=== PATIENT | male | born 1990 | race Two or more races ===

== ENCOUNTER 2024-09-10 10:29 | Outpatient (CLI) | payer OTHER, SELFPAY ==
--- NOTE | ~2024-09-10 | XR_ITS ---
Right Shoulder Technique: AP and axillary views were obtained. Clinical History: Pain Findings: No fracture or dislocation is seen. Osseous alignment is anatomic. The glenohumeral and acr omioclavicular joint spaces are preserved. Soft tissues are unremarkable. Impression: Unremarkable right shoulder radiographs. Reviewed, dictated and finalized at [facility]. Impression: Unremarkable right shoulder radiographs.
--- NOTE | ~2024-09-10 | XR_ITS ---
Cervical Spine: AP, lateral, open-mouth views Clinical History: Pain Findings: The normal lordotic curve is maintained. The vertebral bodies and posterior elements appea r intact. The intervertebral disc spaces are well maintained. Pre-vertebral soft tissues are unremar kable. Impression: No significant abnormality is seen. Reviewed, dictated and finalized at [facility]. Impression: No significant abnormality is seen.
--- OUTSIDE RECORDS SUMMARY | 2024-09-10 11:23 | XMS_ITS | Continuity of Care Document ---
Author Organization [place] - [facility], [facility] Address [address] [place] [address] Care Team Providers Care Program Director/Music Director Name Role Phone ADALID HERNANDEZ Primary Care Provider [phone] Assessment No assessment recorded. Plan of Treatment Reminders Order Date Submit Date Provider Last Modified By Organization Details Last Modified Time Details Appointments Follow Up 15 2024 08:30A M Adalid Hernandez MD Not available Not available Not available Lab None recorded. Referral None recorded. Procedures None recorded. Surgeries None recorded. Imaging XR, cervical spine, 2 or 3 view 2024 025 [facility], [address] [place] [address], [id number], 09/09/2024 11:50:45 XR, shoulder, 2 or more view [email or web address] [place] [address], [address] [place] [address], [id number], 09/09/2024 11:50:45 Medication Orders cyclobenz aprine 10 mg tablet 2024 025 [facility] [place], [address], 09/09/2024 11:44:10 ergocalci ferol (vitamin D2) 1,250 mcg (50,000 unit) capsule 2024 025 [facility] [place], [address], 09/09/2024 11:44:09 omeprazol e 20 mg capsule,d elayed release 2024 025 [facility] [place], [address], 09/09/2024 11:44:11 tramadol 50 mg tablet 2024 025 [facility] [place], [address], 09/09/2024 11:44:21 Patient TargetsNo targets recorded. Patient InstructionsNo instructions recorded. Reason for Referral None Reported. Problems Name Problem SNOMED Code Status Onset Date Resolution Date Notes Provider Name and Address Organization Details Recorded Time Shivam pittman 974529929 Active 2020 Not Available [facility] 3 22:22:48 Gastroesop hageal reflux disease without esophagiti s 148123845 Active 2020 Not Available [facility] 3 22:22:49 Anemia 587815764 Active 2020 Not Available [facility] 3 22:22:49 Vitamin D deficiency 10895643 Active 2020 Not Available [facility] 3 22:22:49 Pain of left knee joint 4654857945497 07 Active 2021 Not Available [facility] 3 22:22:49 Vitamin B12 deficiency (non anemic) 73976945 Active 2020 Not Available [facility] 3 22:22:49 Dental caries 96389056 Active 2020 Not Available [facility] 3 22:22:49 Fatigue 91919448 Active 2020 Not Available [facility] 3 22:22:49 Pain of right shoulder joint 1044653148788 9100 Active 2024 Adalid Hernandez MD [address] [place] [address], [phone] , [facility] 5 11:39:13 Chronic neck pain 2380519380369 Active 2024 Adalid Hernandez MD [address], [place], [address] , [place] [facility] 5 11:40:28 Problem Notes None recorded. Medical Equipment None Reported. Allergies No known drug allergies Medications Name Sig Start Date Stop Date Status Note LastModified by Organization Details LastModified Time cyclobenz aprine 10 mg tablet Take 1 tablet every 12 hours by oral route as needed for 15 days. 2024 active Not Available Not Available Not Avai lable amoxicill in 500 mg capsule TAKE ONE CAPSULE BY MOUTH EVERY 8 HOURS UNTIL ALL TAKEN 01/18 completed Not Available Not Available Not Available promethaz ine-DM 6.25 mg-15 mg/5 mL oral syrup TK 5 ML PO Q 4 TO 6 H PRF COUGH OR NAUSEA 06/20 completed Not Available Not Available Not Available ibuprofen 800 mg tablet TAKE 1 TABLET BY MOUTH EVERY 8 HOURS UNTIL ALL TAKEN 01/18 completed Not Available Not Available Not Available prednison e 20 mg tablet TK 1 T PO D IN THE MORNING WF OR MILK 06/20 completed Not Available Not Available Not Available cyanocoba nathan (vit B-12) 1,000 mcg tablet Take 1 tablet every day by oral route as directed . active Not Available Not Available No t Available penicilli n V potassium 500 mg tablet Take 1 tablet twice a day by oral route for 10 days. active Not Available Not Available No t Available acetamino phen 300 mg-codein e 30 mg tablet TAKE 1 TO 2 TABLETS BY MOUTH EVERY 6 HOURS NEEDED 01/18 completed Not Available Not Available Not Available tramadol 50 mg tablet Take 1 tablet every 8 hours by oral route as needed for 7 days. 2024 active Not Available Not Available Not Avai lable famotidin e 20 mg tablet TAKE 1 TABLET BY MOUTH TWICE DAILY DIRECTED 09/09 completed Not Available Not Available Not Available cyanocoba nathan (vit B-12) 1,000 mcg/mL injection solution Inject 1 mL every week by subcutan eous route for 1 day. active Pt tolerate d well Not Available Not Available Not Available omeprazol e 20 mg capsule,d elayed release Take 1 capsule every day by oral route in the morning for 30 days. 2024 active Not Available Not Available Not Avai lable ergocalci ferol (vitamin D2) 1,250 mcg (50,000 unit) capsule Take 1 capsule every week by oral route as directed for 90 days. 2024 active Not Available Not Available Not Avai lable ferrous sulfate 325 mg (65 mg iron) tablet,de layed release Take 1 tablet twice a day by oral route with meals for 30 days. active Not Available Not Available No t Available FeroSul 325 mg (65 mg iron) tablet TAKE 1 TABLET BY MOUTH TWICE DAILY WITH MEALS active Not Available Not Available No t Available One Daily Multivita min with Iron 18 mg iron tablet Take 1 tablet every day by oral route as directed for 30 days. active Not Available Not Available No t Available Flublok Quad 0364-3470 (PF) 180 mcg (45 mcg x 4)/0.5 mL IM syringe PHARMACI ST ADMINIST ERED IMMUNIZA TION ADMINIST ERED AT TIME OF DISPENSI NG active Not Available Not Available No t Available Tab-A-Vit e 400 mcg tablet TAKE 1 TABLET BY MOUTH ONCE DAILY DIRECTED 09/09 completed Not Available Not Available Not Available Vitals Date Recorded Body height Body mass index (BMI) Body weight Body temperature Oxygen saturation Oxygen saturation in Arterial blood by Pulse oximetry Heart rate Systolic blood pressure Diastolic blood pressure Provider Name and Address Organization Details Last Updated DateTime 5 162.56 cm 18.1 kg/m2 97175.2 5 g 98.2 [degF] 98 % 98 % 86 /min 110 mm[Hg] 70 mm[Hg] Columba Ramos RN [place] [facility] 5 11:31:41 Social History Question Answer Notes LastModified by Organizat ion Details LastModified Time Tobacco Smoking Status Never Smoker Not Available [facility] 08/01/2022 22:22:06 In The 14 Days Before Symptom Onset, Have You Had Close Contact With A Laboratory-confirm ed COVID-19 While That Case Was Ill? No [id number] Information not available 08/01/2022 In The 14 Days Before Symptom Onset, Have You Had Close Contact With A Person Who Is Under Investigation For COVID-19 While That Person Was Ill? No [id number] Information not available 08/01/2022 Sex: Unknown Functional Status None recorded. Mental Status None recorded. Family History Nothing Reported. Medical History No medical history recorded. Immunizations Vaccine Type Date Status Note Provider Nam e and Address Organization Details Recorded Time Influenza, split virus, quadrivalent, PF 05/15/2021 completed Not Available [facility] 22:23:34 Past Encounters Encounter ID Performer Location Encounter Start Date Encounter Closed Date Diagnosis/Indication Diagnosis SNOMED-CT Code Diagnosis ICD10 Code Diagnosis Note [id number] Adalid Hernandez MD [facility] [address] [place] [id number] 09/09/2024 11:21:09 09/09/2024 11:50:45 Pain of right shoulder joint 7543663757 5652416 M25.511 Anemia 511527187 D64.9 Chronic neck pain 239950 8935 107 M54.2 Vitamin D deficiency 347 60512 E55.9 Gastroesop hageal reflux disease without esophagitis 215418349 K21.9 Vitamin B1 2 deficiency (non anemic) 02640421 E53.8 Health Concerns Section Related Observation LastModified by Organization Detai ls LastModified Time None Recorded Concern Status LastModified by Organization Details LastModified Time None Recorded Payers Encounter Date Sequence Insurance Name Policy Number Policy Troy Covered Member ID Troy Member ID Guarantor Name 09/09/2024 1 [facility] [id number] [facility] [id number] [facility] Notes Date Note Type Note Provider Name and Address Organization Details Recorded Time 09/09/2024 text/html ACV: C/o Rt shoulder pain for last 2-3 weeks. Pt denies any recent fall/injury. Pt denies any workman's comp. 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 Pt had a fall about 1 yr ago and had Rt shoulder pain at that time. Pt denies any testing at that time and did not see anyone for it. Pt also had a fall in [place] about 10 yrs ago and had some back injury at that time and he was admitted to hospital in [place] for few days and it all got better. Pt denies any fracture at that time. Adalid Hernandez MD [address] [place] [address], [facility] [address], [place], [address], [facility] 09/09/2024 11:49:45
--- OUTSIDE RECORDS SUMMARY | 2024-09-10 11:23 | XMS_ITS | Clinical Summary ---
Author Organization [facility] Address [address] [place] [address] Phone Care Team Providers Care Inspector And Unloader Name Role Phone Provider, None Primary Care Provider Unavailabl e Allergies No known active allergies Medications polyethylene glycol (GLYCOLAX) Powder Take 17 g by mouth daily. 17 g = 1 scoop. Dissolve in 4 -8 oz of water or other liquid. Active ketorolac (TORADOL) 10 MG Tablet Take 1 Tab by mouth every 6 hours as needed for Moderate or more severe pain. 20 Tab 06/23/2018 Active polyethylene glycol (MIRALAX) Pack Take 1 Packet by mouth daily. Dissolve in 4-8 oz of liquid. 30 Packet 06/23/2018 Active docusate sodium (COLACE) 100 MG Capsule Take 1 Cap by mouth 2 times daily. 10 Cap 06/23/2018 Active Social History Tobacco Use Types Packs/Day Years Used Date Smoking Tobacco: Never Smokeless Tobacco: Never Alcohol Use Standard Drinks/Week Comments No 0 (1 standard drink = 0.6 oz pur e alcohol) Sex and Gender Information Value Date Recorded Sex Assigned at Not on file Legal Sex Male 10:05 AM SEAM STAYER Gender Identity Not on file Sexual Orientation Not on file Last Filed Vital Signs Vital Sign Reading Time Taken Comments Blood Pressure 124/77 06/23/2018 10:13 AM SEAM STAYER Pulse 73 06/23/2018 10:13 AM SEAM STAYER Temperature 37.2 C (99 F) 06/23/2018 10:13 AM SEAM STAYER Respiratory Rate 16 06/23/2018 10:13 AM SEAM STAYER Oxygen Saturation 100% 06/23/2018 10:13 AM SEAM STAYER Inhaled Oxygen Concentration - - Weight 59 kg (130 lb) 06/23/2018 10:13 AM SEAM STAYER Height 162.6 cm (5' 4 ) 06/23/2018 10:39 AM SEAM STAYER Body Mass Index 22.31 06/23/2018 10:13 AM SEAM STAYER Plan of Treatment Health Maintenance Due Date Last Done Comments Hepatitis C Virus (HCV) Screening 1988 TdaP Immunization 1988 Hepatitis B Immunization (1 of 3 - 19+ 3-dose series) 2007 Influenza Immunization (#1) 2024 SARS-COV-2 Immunization ( season) 2024 04/29/2021, 10/08/2020, 09/10/2020 Respiratory Syncytial Virus (RSV) Immunization (Adult) (1 - 1-dose 75+ series) 2063 Meningococcal Immunization (ACWY) Aged Out No longer eligible b ased on patient's age to complete this topic Pneumococcal Immunization Combined Aged Out No longer eligible b ased on patient's age to complete this topic Rotavirus Immunization Aged Out No lo nger eligible based on patient's age to complete this topic Insurance [place] [address] Care Teams Inspector And Unloader Relationship Specialty Start Date End Date Provider, None [place] PCP - General 06/23/18
--- OUTSIDE RECORDS SUMMARY | 2024-09-10 11:24 | XMS_ITS | Data Portability ---
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 Annual labs: 08/16/20. D/w pt in detail about his findings, recent labs & imagines and further plan of care. Will do routine labs. Meds as directed. Diet and exercise explained in detail. F/u with GI as per schedule. HM: Flu - 05/15/21. Tdap, Gardasil - At pharmacy/HD. F/u in 2 weeks. Annual labs in 01/24. Not available 01/03/2023 09:22:47 Plan of Treatment Reminders Order Date Submit Date Provider Last Modified By Organization Details Last Modified Time Details Appointments Follow Up 15 2024 08:30A M Adalid Hernandez MD Not available Not available Not available Lab CMP, serum or plasma 2022 023 [facility] (Lab), [address] [place], [address], 01/03/2023 14:58:01 CBC w/ auto diff 2022 023 [facility] (Lab), [address] [place], [address], 01/03/2023 14:41:32 lipid panel, blood 2022 023 [email or web address] [facility] (Lab), [address] [place], [address], 01/16/2023 16:27:26 TSH, serum, reflex free T4 2022 023 [facility] (Lab), [address] [place], [address], 01/03/2023 16:00:57 urinalysi s complete, reflex culture [address] (Lab), [address] [place], [address], 01/16/2023 16:27:27 iron + total iron-bind ing capacity (TIBC), serum 2022 023 [facility] (Lab), [address] [place], [address], 01/03/2023 14:56:11 magnesium , serum or plasma 2022 023 [facility] (Lab), [address] [place], [address], 01/03/2023 14:57:50 vitamin B12 + folate, serum or blood [address] (Lab), [address] [place], [address], 01/16/2023 16:27:27 vitamin D, 25-hydrox y, total, serum [address] (Lab), [address] [place], [address], 01/16/2023 16:27:27 H pylori Ag, qual immunoass ay, stool 2022 023 [facility] ([facility]), [address] [place], [address], 01/16/2023 16:27:27 Referral None recorded. Procedures None recorded. Surgeries None recorded. Imaging XR, cervical spine, 2 or 3 view [email or web address] [place] [address], [address] [place] [address], [id number], 09/09/2024 11:50:45 XR, shoulder, 2 or more view [email or web address] [place] [address], [address] [place] [address], [id number], 09/09/2024 11:50:45 Medication Orders cyclobenz aprine 10 mg tablet 2024 025 [facility], [address] [place] [address], [id number], 09/09/2024 11:44:10 ergocalci ferol (vitamin D2) 1,250 mcg (50,000 unit) capsule 2024 025 [facility], [address] [place] [address], [id number], 09/09/2024 11:44:09 omeprazol e 20 mg capsule,d elayed release 2024 025 [facility], [address] [place] [address], [id number], 09/09/2024 11:44:11 tramadol 50 mg tablet 2024 025 [facility], [address] [place] [address], [id number], 09/09/2024 11:44:21 Patient TargetsNo targets recorded. Patient InstructionsNo instructions recorded. Reason for Referral None Reported. Results Created Date Observation Date Name Description Value Unit Range Abnormal Flag Note LastModifiedBy Organization Detail LastModifiedTime 01/04/2001/0301/03/2023 URINA LYSIS COMPL ETE/I RIS W/RFX color COLORL ESS Not Available [facility] (Lab) [address] [place], [address], 01/03/2023 13:38:41 01/04/20 23 01/03/2023 URINA LYSIS COMPL ETE/I RIS W/RFX appear CLEAR Not Available [facility] (Lab) [address] [place], [address], 01/03/2023 13:38:41 01/04/20 23 01/03/2023 URINA LYSIS COMPL ETE/I RIS W/RFX specific gravity 1.006 1.001- 1.030 Not Available [facility] (Lab) [address] [place], [address], 01/03/2023 13:38:41 01/04/20 23 01/03/2023 URINA LYSIS COMPL ETE/I RIS W/RFX pH 6.0 pH_un its 5.0-9. 0 Not Available [facility] (Lab) [address] [place], [address], 01/03/2023 13:38:41 01/04/20 23 01/03/2023 URINA LYSIS COMPL ETE/I RIS W/RFX leukocytes NEGATI VE marva/u L negati ve- Not Available [facility] (Lab) [address] [place], [address], 01/03/2023 13:38:41 01/04/20 23 01/03/2023 URINA LYSIS COMPL ETE/I RIS W/RFX nitrite NEGATI VE negati ve- Not Available [facility] (Lab) [address] [place], [address], 01/03/2023 13:38:41 01/04/20 23 01/03/2023 URINA LYSIS COMPL ETE/I RIS W/RFX protein NEGATI VE mg/dL negati ve- Not Available [facility] (Lab) [address] [place], [address], 01/03/2023 13:38:41 01/04/20 23 01/03/2023 URINA LYSIS COMPL ETE/I RIS W/RFX glucose NORMAL mg/dL normal - Not Available [facility] (Lab) [address] [place], [address], 01/03/2023 13:38:41 01/04/20 23 01/03/2023 URINA LYSIS COMPL ETE/I RIS W/RFX ketones NEGATI VE mg/dL negati ve- Not Available [facility] (Lab) [address] [place], [address], 01/03/2023 13:38:41 01/04/20 23 01/03/2023 URINA LYSIS COMPL ETE/I RIS W/RFX urobilinogen NORMAL mg/dL normal - Not Available [facility] (Lab) [address] [place], [address], 01/03/2023 13:38:41 01/04/20 23 01/03/2023 URINA LYSIS COMPL ETE/I RIS W/RFX bilirubin NEGATI VE mg/dL negati ve- Not Available [facility] (Lab) [address] [place], [address], 01/03/2023 13:38:41 01/04/20 23 01/03/2023 URINA LYSIS COMPL ETE/I RIS W/RFX blood NEGATI VE mg/dL negati ve- Not Available [facility] (Lab) [address] [place], [address], 01/03/2023 13:38:41 01/04/20 23 01/03/2023 URINA LYSIS COMPL ETE/I RIS W/RFX white blood cells 0-8 /i??h pfi?? 0-8 Not Available [facility] (Lab) [address] [place], [address], 01/03/2023 13:38:41 01/04/2001/03/2023 URINA LYSIS COMPL ETE/I RIS W/RFX red blood cells 0-4 /i??h pfi?? 0-4 Not Available [facility] (Lab) [address] [facility] [place], [address], 01/03/2023 13:38:41 01/04/20 23 01/03/2023 URINA LYSIS COMPL ETE/I RIS W/RFX bacteria NONE Not Available [facility] (Lab) [address] [facility] [place], [address], 01/03/2023 13:38:41 01/04/20 23 01/03/2023 URINA LYSIS COMPL ETE/I RIS W/RFX mucous OCCASI ONAL /i??l pfi?? abnormal Not Available [facility] (Lab) [address] [place], [address], 01/03/2023 13:38:41 01/04/2001/03/2023 URINA LYSIS COMPL ETE/I RIS W/RFX squamous epithelial OCCASI ONAL /i??l pfi?? abnormal Not Available [facility] (Lab) [address] [place], [address], 01/03/2023 13:38:41 01/04/20 23 01/04/2023 CBC/C OMPLE TE BLD COUNT W/DIF F white blood cells 3.8 x10'3 /uL 4.2-10 .8 low Not Available [facility] (Lab) [address] [place], [address], 01/04/2023 10:39:49 01/04/20 23 01/04/2023 CBC/C OMPLE TE BLD COUNT W/DIF F red blood cells 6.16 x10'6 /uL 4.10-5 .80 high Not Available [facility] (Lab) [address] [place], [address], 01/04/2023 10:39:49 01/04/20 23 01/04/2023 CBC/C OMPLE TE BLD COUNT W/DIF F hemoglobin 9.0 g/dL 13.2-1 7.0 low Not Available [facility] (Lab) [address] [place], [address], 01/04/2023 10:39:49 01/04/20 23 01/04/2023 CBC/C OMPLE TE BLD COUNT W/DIF F hematocrit 33.4 % 39.3-5 0.0 low Not Available [facility] (Lab) [address] [place], [address], 01/04/2023 10:39:49 01/04/20 23 01/04/2023 CBC/C OMPLE TE BLD COUNT W/DIF F mean red cell volume 54.2 fL 80.0-9 7.0 low Not Available [facility] (Lab) [address] [place], [address], 01/04/2023 10:39:49 01/04/20 23 01/04/2023 CBC/C OMPLE TE BLD COUNT W/DIF F mean red cell hemoglobin 14.6 pg 27.0-3 3.0 low Not Available [facility] (Lab) [address] [place], [address], 01/04/2023 10:39:49 01/04/20 23 01/04/2023 CBC/C OMPLE TE BLD COUNT W/DIF F mean RBC HGB concentratio n 26.9 g/dL 31.0-3 6.0 low Not Available [facility] (Lab) [address] [place], [address], 01/04/2023 10:39:49 01/04/20 23 01/04/2023 CBC/C OMPLE TE BLD COUNT W/DIF F red cell distribution width 22.6 % 11.8-1 5.5 high Not Available [facility] (Lab) [address] [place], [address], 01/04/2023 10:39:49 01/04/20 23 01/04/2023 CBC/C OMPLE TE BLD COUNT W/DIF F platelets 369 x10'3 /uL 150-40 0 Not Available [facility] (Lab) [address] [place], [address], 01/04/2023 10:39:49 01/04/20 23 01/04/2023 CBC/C OMPLE TE BLD COUNT W/DIF F neutrophils 49.7 % 39.0-7 2.0 Not Available [facility] (Lab) [address] [place], [address], 01/04/2023 10:39:49 01/04/20 23 01/04/2023 CBC/C OMPLE TE BLD COUNT W/DIF F lymphocytes 36.5 % 16.0-4 7.0 Not Available [facility] (Lab) [address] [place], [address], 01/04/2023 10:39:49 01/04/20 23 01/04/2023 CBC/C OMPLE TE BLD COUNT W/DIF F monocytes 8.3 % 5.0-12 .0 Not Available [facility] (Lab) [address] [place], [address], 01/04/2023 10:39:49 01/04/20 23 01/04/2023 CBC/C OMPLE TE BLD COUNT W/DIF F eosinophils 4.2 % 1.0-7. 0 Not Available [facility] (Lab) [address] [place], [address], 01/04/2023 10:39:49 01/04/20 23 01/04/2023 CBC/C OMPLE TE BLD COUNT W/DIF F basophils 1.3 % 0.0-2. 0 Not Available [facility] (Lab) [address] [place], [address], 01/04/2023 10:39:49 01/04/20 23 01/04/2023 CBC/C OMPLE TE BLD COUNT W/DIF F immature granulocytes 0.0 % 0.00-0 .50 Not Available [facility] (Lab) [address] [place], [address], 01/04/2023 10:39:49 01/04/2001/04/2023 CBC/C OMPLE TE BLD COUNT W/DIF F neutrophils, absolute count 1.91 x10'3 /uL 1.5-8. 0 Not Available [facility] (Lab) [address] [place], [address], 01/04/2023 10:39:49 01/04/20 23 01/04/2023 CBC/C OMPLE TE BLD COUNT W/DIF F lymphocytes, absolute count 1.40 x10'3 /uL 1.07-3 .43 Not Available [facility] (Lab) [address] [place], [address], 01/04/2023 10:39:49 01/04/2001/04/2023 CBC/C OMPLE TE BLD COUNT W/DIF F monocytes, absolute count 0.32 x10'3 /uL 0.29-0 .99 Not Available [facility] (Lab) [address] [place], [address], 01/04/2023 10:39:49 01/04/2001/04/2023 CBC/C OMPLE TE BLD COUNT W/DIF F eosinophils, absolute count 0.16 x10'3 /uL 0.02-0 .53 Not Available [facility] (Lab) [address] [place], [address], 01/04/2023 10:39:49 01/04/20 23 01/04/2023 CBC/C OMPLE TE BLD COUNT W/DIF F basophils, absolute count 0.05 x10'3 /uL 0.01-0 .08 Not Available [facility] (Lab) [address] [place], [address], 01/04/2023 10:39:49 01/04/20 23 01/04/2023 CBC/C OMPLE TE BLD COUNT W/DIF F immature granulocytes ,absolute 0.00 x10'3 /uL 0.00-0 .05 Not Available [facility] (Lab) [address] [place], [address], 01/04/2023 10:39:49 01/04/20 23 01/04/2023 CBC/C OMPLE TE BLD COUNT W/DIF F nucleated red blood cells 0.0 % -0 Not Available [facility] (Lab) [address] [place], [address], 01/04/2023 10:39:49 01/04/20 23 01/04/2023 CBC/C OMPLE TE BLD COUNT W/DIF F NRBC# 0.00 x10'3 /uL Not Available [facility] (Lab) [address] [place], [address], 01/04/2023 10:39:49 01/04/20 23 01/04/2023 CBC/C OMPLE TE BLD COUNT W/DIF F anisocytosis OCCASI ONAL Not Available [facility] (Lab) [address] [place], [address], 01/04/2023 10:39:49 01/04/20 23 01/04/2023 CBC/C OMPLE TE BLD COUNT W/DIF F poikilocytos is OCCASI ONAL Not Available [facility] (Lab) [address] [place], [address], 01/04/2023 10:39:49 01/04/20 23 01/04/2023 CBC/C OMPLE TE BLD COUNT W/DIF F hypochromia OCCASI ONAL Not Available [facility] (Lab) [address] [place], [address], 01/04/2023 10:39:49 01/04/20 23 01/04/2023 CBC/C OMPLE TE BLD COUNT W/DIF F target cells OCCASI ONAL Not Available [facility] (Lab) [address] [place], [address], 01/04/2023 10:39:49 01/04/20 23 01/04/2023 CBC/C OMPLE TE BLD COUNT W/DIF F ovalocytes OCCASI ONAL Not Available [facility] (Lab) [address] [place], [address], 01/04/2023 10:39:49 01/04/20 23 01/04/2023 CBC/C OMPLE TE BLD COUNT W/DIF F schistocytes OCCASI ONAL Not Available [facility] (Lab) [address] [place], [address], 01/04/2023 10:39:49 01/04/20 23 01/04/2023 CBC/C OMPLE TE BLD COUNT W/DIF F large platelets OCCASI ONAL Not Available [facility] (Lab) [address] [place], [address], 01/04/2023 10:39:49 01/04/20 23 01/03/2023 IRON/ TIBC PANEL total iron binding capacity 482 mcg/d L 265-47 5 high Not Available [facility] (Lab) [address] [place], [address], 01/03/2023 14:59:14 01/04/20 23 01/03/2023 IRON/ TIBC PANEL % transferrin saturation 5 % 20-55 low Not Available [facility] (Lab) [address] [place], [address], 01/03/2023 14:59:14 01/04/2001/03/2023 IRON/ TIBC PANEL unsaturated iron bind capacity 458 mcg/d L 126-38 2 high Not Available [facility] (Lab) [address] [place], [address], 01/03/2023 14:59:14 01/04/20 23 01/03/2023 IRON/ TIBC PANEL iron 24 mcg/d L 42-175 low Not Available [facility] (Lab) [address] [place], [address], 01/03/2023 14:59:14 01/04/20 23 01/03/2023 LIPID PANEL cholesterol 151 mg/dL 140-19 9 NIH CHIOMA NSUS RECOM MENDA TION FOR VANI STERO L: ADULT CHILD LOW RISK: <200 <170 BORDE RLINE : <200- 239 ----- HIGH RISK: >240 >200 Not Available [facility] (Lab) [address] [place], [address], 01/03/2023 14:57:48 01/04/2001/03/2023 LIPID PANEL triglyceride s 74 mg/dL 0-150 NIH CHIOMA NSUS REPOR T RECOM MENDA TION FOR TRIGL YCERI ALEXANDER: ADULT CHILD LOW RISK: <150 ----- BODER LINE: 150-1 99 ----- HIGH RISK: >200 ----- Not Available [facility] (Lab) [address] [place], [address], 01/03/2023 14:57:48 01/04/2001/03/2023 LIPID PANEL HDL cholesterol 45 mg/dL 40- Not Available [facility] (Lab) [address] [place], [address], 01/03/2023 14:57:48 01/04/2001/03/2023 LIPID PANEL LDL cholesterol, calculated 91 mg/dL 0-130 NIH CHIOMA NSUS REPOR T RECOM MENDA TIONS FOR LDL: ADULT CHILD LOW RISK <130 <110 (OPTI MAL LDL) <100 ----- BORDE RLINE : 130-1 59 ----- HIGH RISK: >160 >130 A TRIGL YCERI DE RESUL T >400 INVAL IDATE S THE CALCU LATIO N FOR LDL FRACT IONAT ION - THE LDL RESUL T WILL NOT BE REPOR MEAGHAN. Not Available [facility] (Lab) [address] [place], [address], 01/03/2023 14:57:48 01/04/2001/03/2023 MAGNE SIUM magnesium 2.1 mg/dL 1.6-2. 3 Not Available [facility] (Lab) [address] [place], [address], 01/03/2023 14:57:50 01/04/20 23 01/03/2023 COMPR EHENS DANI METAB OLIC PANEL sodium 137 mmol/ L 137-14 5 Not Available [facility] (Lab) [address] [place], [address], 01/03/2023 14:58:01 01/04/20 23 01/03/2023 COMPR EHENS DANI METAB OLIC PANEL potassium 4.6 mmol/ L 3.5-5. 1 Not Available [facility] (Lab) [address] [place], [address], 01/03/2023 14:58:01 01/04/20 23 01/03/2023 COMPR EHENS DANI METAB OLIC PANEL chloride 104 mmol/ L 98-107 Not Available [facility] (Lab) [address] [place], [address], 01/03/2023 14:58:01 01/04/20 23 01/03/2023 COMPR EHENS DANI METAB OLIC PANEL carbon dioxide 26 mmol/ L 22-30 Not Available [facility] (Lab) [address] [place], [address], 01/03/2023 14:58:01 01/04/20 23 01/03/2023 COMPR EHENS DANI METAB OLIC PANEL anion gap 11.6 mmol/ L 14-22 low Not Available [facility] (Lab) [address] [place], [address], 01/03/2023 14:58:01 01/04/20 23 01/03/2023 COMPR EHENS DANI METAB OLIC PANEL glucose 90 mg/dL 70-99 Not Available [facility] (Lab) [address] [place], [address], 01/03/2023 14:58:01 01/04/20 23 01/03/2023 COMPR EHENS DANI METAB OLIC PANEL BUN 8 mg/dL 8-19 Not Available [facility] (Lab) [address] [place], [address], 01/03/2023 14:58:01 01/04/20 23 01/03/2023 COMPR EHENS DANI METAB OLIC PANEL creatinine 0.71 mg/dL 0.66-1 .25 Not Available [facility] (Lab) [address] [place], [address], 01/03/2023 14:58:01 01/04/20 23 01/03/2023 COMPR EHENS DANI METAB OLIC PANEL GFR >60 Refer ence Range : Winn ge GFR Healt hy Adult : >60 mL/mi n/1.7 3 m2 Chron ic Kidne y Disea se: 15-60 mL/mi n/1.7 3 m2 Kidne y Failu re: <15/m L/min /1.73 m2 www.n iddk. nih.g ov The MDRD study equat ion has not been valid ated in child rose <18 years of age; pregn ant women ; the elder ly >85 years of age; or in some racia l or ethni c subgr oups, such as Hispa nics. Outsi de the valid ated paul eters , estim ated GFR is less accur ate, requi ring clini katlyn judgm ent on a case- by-ca se basis . Clini katlyn inter preta tion for other races and ages must be made by the clini mao. The MDRD study equat ion has not been valid ated for the evalu ation of serum creat inine relat ed to nutri lencho l statu s or medic ation usage . For perso ns <18 years of age, a pedia tric GFR calcu lator is avail able on the [facility] websi te: https ://ww w.kid tuan.o rg/pr ofess ional s/kdo qi/gf r_cal culat or Not Available [facility] (Lab) [address] [place], [address], 01/03/2023 14:58:01 01/04/20 23 01/03/2023 COMPR EHENS DANI METAB OLIC PANEL alkaline phosphatase 45 U/L 38-126 Not Available [facility] (Lab) [address] [place], [address], 01/03/2023 14:58:01 01/04/20 23 01/03/2023 COMPR EHENS DANI METAB OLIC PANEL alanine aminotransfe rase 20 U/L 0-50 Not Available [facility] (Lab) [address] [place], [address], 01/03/2023 14:58:01 01/04/20 23 01/03/2023 COMPR EHENS DANI METAB OLIC PANEL aspartate aminotransfe rase 26 U/L 15-46 Not Available [facility] (Lab) [address] [place], [address], 01/03/2023 14:58:01 01/04/20 23 01/03/2023 COMPR EHENS DANI METAB OLIC PANEL bilirubin, total 0.50 mg/dL 0.20-1 .30 Not Available [facility] (Lab) [address] [place], [address], 01/03/2023 14:58:01 01/04/20 23 01/03/2023 COMPR EHENS DANI METAB OLIC PANEL calcium 9.4 mg/dL 8.4-10 .2 Not Available [facility] (Lab) [address] [place], [address], 01/03/2023 14:58:01 01/04/20 23 01/03/2023 COMPR EHENS DANI METAB OLIC PANEL total protein 7.5 g/dL 6.3-8. 2 Not Available [facility] (Lab) [address] [facility] [place], [address], 01/03/2023 14:58:01 01/04/20 23 01/03/2023 COMPR EHENS DANI METAB OLIC PANEL albumin 4.7 g/dL 3.4-5. 0 Not Available [facility] (Lab) [address] [place], [address], 01/03/2023 14:58:01 01/04/20 23 01/03/2023 COMPR EHENS DANI METAB OLIC PANEL globulin 2.8 g/dL 2.6-4. 2 Not Available [facility] (Lab) [address] [place], [address], 01/03/2023 14:58:01 01/04/20 23 01/03/2023 COMPR EHENS DANI METAB OLIC PANEL A/G ratio 1.7 ratio 1.0-2. 0 Not Available [facility] (Lab) [address] [place], [address], 01/03/2023 14:58:01 01/04/2001/03/2023 TSH W/REF SHASTA FT4 TSH with reflex free T4 8.060 uIU/m L 0.465- 4.680 high Not Available [facility] (Lab) [address] [place], [address], 01/03/2023 15:25:51 01/04/20 23 01/03/2023 T4 FREE free T4 1.11 NG/dL 0.78-2 .19 Not Available [facility] (Lab) [address] [place], [address], 01/03/2023 15:56:47 01/04/20 23 01/03/2023 VITAM IN D 25-HY DROXY vd25oh 22.4 NG/mL 30-100 low Vitam in D Statu s: Defic ient: <20 ng/mL Insuf ficie nt: 20-29 ng/mL Suffi cient : 30-10 0 ng/mL Not Available [facility] (Lab) [address] [place], [address], 01/03/2023 18:44:01 01/04/20 23 01/03/2023 VITAM IN B12 (ROBERT JOZEF ) vb12 185 pg/mL 239-93 1 low Not Available [facility] (Lab) [address] [place], [address], 01/03/2023 19:36:47 01/04/2001/03/2023 FOLAT E, SERUM /PLAS MA folate 7.00 NG/mL 2.76-2 0.0 Not Available [facility] (Lab) [address] [place], [address], 01/03/2023 19:36:52 Result Notes None recorded. Problems Name Problem SNOMED Code Status Onset Date Resolution Date Notes Provider Name and Address Organization Details Recorded Time [facility] t 998514683 Active 2020 Not Available [facility] 3 22:22:48 Gastroesop hageal reflux disease without esophagiti s 337903649 Active 2020 Not Available [facility] 3 22:22:49 Anemia 578020288 Active 2020 Not Available [facility] 3 22:22:49 Vitamin D deficiency 50773602 Active 2020 Not Available [facility] 3 22:22:49 Pain of left knee joint 4925389525715 07 Active 2021 Not Available [facility] 3 22:22:49 Vitamin B12 deficiency (non anemic) 15280411 Active 2020 Not Available [facility] 3 22:22:49 Dental caries 66046254 Active 2020 Not Available [facility] 3 22:22:49 Fatigue 51661337 Active 2020 Not Available [facility] 3 22:22:49 Pain of right shoulder joint 2269717667717 9100 Active 2024 Adalid Hernandez MD [address] [place] [address], [place], [address] , [facility] 5 11:39:13 Chronic neck pain 8161670002083 Active 2024 Adalid Hernadnez MD [address] [place] [address], [place], [address] , [facility] 5 11:40:28 Problem Notes None recorded. Medical [...] Not Available Not Available Not Available cyanocoba jozef (vit B-12) 1,000 mcg tablet Take 1 [...] Not Available Not Available Not Available cyanocoba jozef (vit B-12) 1,000 mcg/mL injection solution Inject [...] Not Available No t Available Flublok Quad (PF) 180 mcg (45 mcg x 4)/0.5 mL IM syringe PHARMACI ST ADMINIST ERED IMMUNIZA TION ADMINIST ERED AT TIME OF DISPENSI NG active Not Available Not Available No t Available Tab-A-Vit e 400 mcg tablet TAKE 1 TABLET BY MOUTH ONCE DAILY DIRECTED 09/09 completed Not Available Not Available Not Available Vitals Date Recorded Body mass index (BMI) Body height Oxygen saturation Oxygen saturation in Arterial blood by Pulse oximetry Heart rate Respiratory rate Body temperature Body weight Systolic blood pressure Diastolic blood pressure Provider Name and Address Organization Details Last Updated DateTime 2 17.6 kg/m2 162.56 cm 98 % 98 % 89 /min 16 /min 98.2 [degF] 10715.5 2 g 100 mm[Hg] 80 mm[Hg] Not Available [facility] 3 22:22:25 Date Recorded Body mass index (BMI) Body height Oxygen saturation Oxygen saturation in Arterial blood by Pulse oximetry Heart rate Respiratory rate Body temperature Body weight Systolic blood pressure Diastolic blood pressure Provider Name and Address Organization Details Last Updated DateTime 2 17.4 kg/m2 162.56 cm 98 % 98 % 79 /min 16 /min 98.6 [degF] 91107.9 3 g 100 mm[Hg] 62 mm[Hg] Not Available [facility] 3 22:22:25 Date Recorded Body mass index (BMI) Body height Oxygen saturation Oxygen saturation in Arterial blood by Pulse oximetry Heart rate Body temperature Body weight Systolic blood pressure Diastolic blood pressure Provider Name and Address Organization Details Last Updated DateTime 2 16.6 kg/m2 162.56 cm 95 % 95 % 85 /min 98.3 [degF] 06720.4 6 g 102 mm[Hg] 60 mm[Hg] Not Available [facility] 3 22:22:25 Date Recorded Body height Body mass index (BMI) Body weight Body temperature Respiratory rate Oxygen saturation Oxygen saturation in Arterial blood by Pulse oximetry Systolic blood pressure Diastolic blood pressure Provider Name and Address Organization Details Last Updated DateTime 3 162.56 cm 18.4 kg/m2 00535.7 3 g 98.1 [degF] 16 /min 98 % 98 % 102 mm[Hg] 60 mm[Hg] Segundo Kasper [employer] 3 08:54:50 Date Recorded Heart rate Provider Name an d Address Organization Details Last Updated DateTime 01/03/2023 68 /min Jennifer Crum [address] [facility], [address], [address], [employer] 01/03/2023 09:22:10 Date Recorded Body height Body mass index (BMI) Body weight Body temperature Oxygen saturation Oxygen saturation in Arterial blood by Pulse oximetry Heart rate Systolic blood pressure Diastolic blood pressure Provider Name and Address Organization Details Last Updated DateTime 5 162.56 cm 18.1 kg/m2 60448.2 5 g 98.2 [degF] 98 % 98 % 86 /min 110 mm[Hg] 70 mm[Hg] Columba Ramos RN [place] [facility] [employer] 5 11:31:41 Social History Question Answer Notes LastModified by Organizat ion Details LastModified Time Tobacco Smoking Status Never Smoker Not Available [facility] 08/01/2022 22:22:06 In The 14 Days Before Symptom Onset, Have You Had Close Contact With A Laboratory-confirm ed COVID-19 While That Case Was Ill? No [id number] Information not available 08/01/2022 In The 14 Days Before Symptom Onset, Have You Had Close Contact With A Person Who Is Under Investigation For COVID-19 While That Person Was Ill? No [id number] Information not available 08/01/2022 Sex: Unknown Functional Status None recorded. Mental Status None recorded. Family History Nothing Reported. Medical History No medical history recorded. Immunizations Vaccine Type Date Status Note Provider Nam e and Address Organization Details Recorded Time Influenza, split virus, quadrivalent, PF 05/15/2021 completed Not Available [facility] 22:23:34 Past Encounters Encounter ID Performer Location Encounter Start Date Encounter Closed Date Diagnosis/Indication Diagnosis SNOMED-CT Code Diagnosis ICD10 Code Diagnosis Note [id number] [address] [address] 08/10/2020 00:00:00 08/10/2020 16:44:[id number] [address] 08/24/2020 00:00:00 08/24/2020 17:17:[id number] [address] 1 10/17/2020 00:00:00 10/17/2020 17:39:[id number] [address] 01/10/2021 00:00:00 01/10/2021 17:34:18 [id number] [facility] [address] [place] [address] 01/18/2021 00:00:00 01/18/2021 17:43:13 [id number] [facility] [address] [place] [address] 05/15/2021 00:00:00 05/15/2021 16:49:26 [id number] [facility] [address] [place] [address] 11/14/2021 00:00:00 11/14/2021 17:52:10 [id number] [facility] [address] [place] [address] 01/03/2022 00:00:00 01/03/2022 17:22:50 [id number] [facility] [address] [place] [address] 03/26/2022 00:00:00 03/26/2022 17:28:56 [id number] Adalid Hernandez MD [facility] [address] [place] [address] 01/03/2023 08:46:59 01/03/2023 09:45:04 Adult health examination 547601506 Z00.00 Vitamin D deficiency 347 78265 E55.9 Vitamin B1 2 deficiency (non anemic) 41965591 E53.8 Fatigue 53663869 R53.83 Gastroesop hageal reflux disease without esophagitis 260626968 K21.9 Anemia 063945497 D64.9 [id number] Adalid Hernandez MD [facility] [address] [place] [address] 09/09/2024 11:21:09 09/09/2024 11:50:45 Pain of right shoulder joint [id number] 4251836 M25.511 Anemia 351331892 D64.9 Chronic neck pain 428567 5890 107 M54.2 Vitamin D deficiency 347 42439 E55.9 Gastroesop hageal reflux disease without esophagitis 167813697 K21.9 Vitamin B1 2 deficiency (non anemic) 10653821 E53.8 Health Concerns Section Related Observation LastModified by Organization Detai ls LastModified Time None Recorded Concern Status LastModified by Organization Details LastModified Time None Recorded Advance Directives Directive None Recorded Payers Encounter Date Sequence Insurance Name Policy Number Policy Troy Covered Member ID Troy Member ID Guarantor Name 01/03/2023 1 [facility] (MEDICAID HMO) [id number] [facility] [id number] [facility] 09/09/2024 1 [facility] [id number] [facility] [place] [id number] [employer] Notes Date Note Type Note Provider Name and Address Organization Details Recorded Time 01/03/2023 text/html Pt is here for his annual exam. Doing overall well. Denies any new concern. Last visit in 03/24. Pt has chronic anemia and he has not seen GI yet. Pt says he is very busy with work.C/o heart burn for last few years. Denies any blood in stool. Pt has not tried any otc meds for it. Adalid Hernandez MD [address], [place], [address], [employer] 01/03/2023 09:42:17 09/09/2024 text/html ACV: C/o Rt shoulder pain [...] fracture at that time. Adalid Hernandez MD [address], [place], [address], [employer] 09/09/2024 11:49:45
== END 2024-09-10 10:30 | disposition home or self-care (01) ==
PROVIDERS: PCP Family Medicine; Visit Provider Family Medicine
DX: M25.511 Pain in right shoulder (principal); M54.2 Cervicalgia
CPT/HCPCS: 72040; 73030